=== PATIENT | male | born 1970 | race Caucasian/White ===

== ENCOUNTER 2017-06-18 07:02 | Emergency (ER) | payer BC ==
[~2017-06-18] VITALS: Ht 167.6 cm; Wt 105.2 kg
[~2017-06-18 07:02] MED LIST: Antivert25 MG PO; BUPR75 PO; Bupropion HCl150 M2 PO; CLON.2 PO; CLON.3 PO; CYCL10 PO; HYDR1TAB94 PO; L-METHYLFOLATE15 MG; LITH300C PO; Lithium Carbon450 MG PO; Mucinex600 MG PO; Naprosyn500 MG PO; OMEP20ER PO; Omeprazole20 M1; PENVK500 PO; Prednisone20 MG PO; RABE20 PO; RANI150; RANI150 PO; RISP3 PO; TRAZ150T57; Trazodone HCl300 MG; Valium5 MG PO
[2017-06-18] MEDS ORDERED: PRAZ2 PO (07:24)
[2017-06-18 08:12] LABS: BASOPHILS ABSOLUTE AUTO 0.04 K/mm3 (0.00-0.23); BASOPHILS PERCENT AUTO 0 % (0-2); EOSINOPHILS ABSOLUTE AUTO 0.02 K/mm3 (0.00-0.68); EOSINOPHILS PERCENT AUTO 0 % (0-6); Hematocrit 40.7 % (37.0-53.0); Hemoglobin 13.8 g/dL (13.5-17.5); IMMATURE GRAN PERCENT AUTO 1 % (0-1); LYMPHOCYTES PERCENT AUTO 3 % (21-46); MONOCYTES ABSOLUTE AUTO 1.05 K/mm3 (0.16-1.47); MONOCYTES PERCENT AUTO 6 % (4-13); Mean Corpuscular HGB 30.7 pg (26.0-34.0); Mean Corpuscular HGB Conc 33.9 g/dL (31.5-36.5); Mean Corpuscular Volume 91 fL (80-100); Mean Platelet Volume 9.5 fL (9.1-12.4); NEUTROPHILS ABSOLUTE AUTO 16.51 K/mm3 (1.96-9.15); NEUTROPHILS PERCENT AUTO 90 % (41-73); Platelet Count 278 K/mm3 (150-400); RDW Coefficient Variation 13.2 % (11.7-14.2); RDW Standard Deviation 44.2 fL (35.1-46.3); Red Blood Cell Count 4.49 M/mm3 (4.30-5.90); White Blood Cell Count 18.32 K/mm3 (4.00-11.30)
[2017-06-18 08:17] LABS: Influenza A Negative (NEGATIVE); Influenza B Negative (NEGATIVE)
[2017-06-18 08:25] LABS: International Normalized Ratio 0.96
[2017-06-18 08:28] LABS: Anion Gap 8 mmol/L (6-16); Blood Urea Nitrogen 15 mg/dL (8-24); Bun/Creatinine Ratio 20.7 (12.0-20.0); CO2, Blood 23 mmol/L (21-32); Calcium, Blood 8.3 mg/dL (8.5-10.1); Chloride, Blood 111 mmol/L (98-108); Creatinine, Blood 0.72 mg/dL (0.60-1.20); Glomerular Filtration Rate >60 (60-); Glucose, Blood 136 mg/dL (70-99); Potassium, Blood 3.9 mmol/L (3.5-5.5); Sodium, Blood 142 mmol/L (136-145); Troponin I <0.015 ng/mL (0.000-0.040)
[2017-11-13] MEDS ORDERED: L-METHYLFOLATE15 MG PO (12:01)
[2017-11-13] MEDS ORDERED: Multivitamin1 EAC1 PO (12:02)
== END 2017-06-18 10:15 | disposition home or self-care (01) ==
LOC: ER 07:02
PROVIDERS: Emergency Medicine
DX: R07.89 Other chest pain (principal); F41.9 Anxiety disorder, unspecified; Z79.899 Other long term (current) drug therapy; Z87.891 Personal history of nicotine dependence
CPT/HCPCS: 36415; 51798; 71046; 80048; 84484; 85025; 85610; 87804; 93005; 93010; 94640; 99284

== ENCOUNTER → 2017-06-20 | Outpatient (CLI) | payer BC ==
[~2017-06-20] MED LIST changes: +L-METHYLFOLATE15 MG PO; +Multivitamin1 EAC1 PO; +PRAZ2 PO
== END ==
LOC: LAB SHORT 15:00
DX: N39.0 Urinary tract infection, site not specified (principal)
CPT/HCPCS: 87077; 87086; 87186

== ENCOUNTER 2017-09-04 14:14 | Day surgery (SDC) | payer BC ==
[~2017-09-04] VITALS: Ht 167.6 cm; Wt 103.9 kg
[~2017-09-04 14:14] MED LIST changes: -L-METHYLFOLATE15 MG PO; +Lithium Carbon450 MG; -Lithium Carbon450 MG PO; -Multivitamin1 EAC1 PO
== END 2017-09-04 15:45 | disposition home or self-care (01) ==
LOC: ORSCSDS 14:14
PROVIDERS: Internal Medicine Gastroenterology
PROC: 0D757ZZ Dilation of Esophagus, Via Natural or Artificial Opening (ICD-10-PCS; principal; 2017-09-04 15:30)
PROC: 0DB58ZX Excision of Esophagus, Via Natural or Artificial Opening Endoscopic, Diagnostic (ICD-10-PCS; principal; 2017-09-04 15:30)
PROC: 0DB68ZX Excision of Stomach, Via Natural or Artificial Opening Endoscopic, Diagnostic (ICD-10-PCS; principal; 2017-09-04 15:30)
DX: K21.9 Gastro-esophageal reflux disease without esophagitis (principal); R13.10 Dysphagia, unspecified; K25.9 Gastric ulcer, unspecified as acute or chronic, without hemorrhage or perforation; K29.70 Gastritis, unspecified, without bleeding; K20.9 Esophagitis, unspecified; I10 Essential (primary) hypertension; Z87.891 Personal history of nicotine dependence; Z79.899 Other long term (current) drug therapy; E66.01 Morbid (severe) obesity due to excess calories
CPT/HCPCS: 88305; 88342; J7120

== ENCOUNTER 2017-11-10 11:25 | Emergency (ER) | payer OTHER, BC ==
[~2017-11-10] VITALS: Ht 167.6 cm; Wt 111.6 kg
[~2017-11-10 11:25] MED LIST changes: -Lithium Carbon450 MG; +Lithium Carbon450 MG PO
[2017-11-13] MEDS ORDERED: L-METHYLFOLATE15 MG PO (12:01)
[2017-11-13] MEDS ORDERED: Multivitamin1 EAC1 PO (12:02)
== END 2017-11-10 12:40 | disposition home or self-care (01) ==
LOC: ER 11:25
DX: S49.91XA Unspecified injury of right shoulder and upper arm, initial encounter (principal); M54.5 Low back pain; K21.9 Gastro-esophageal reflux disease without esophagitis; I10 Essential (primary) hypertension; Z88.8 Allergy status to other drugs, medicaments and biological substances; Z79.899 Other long term (current) drug therapy; Z87.891 Personal history of nicotine dependence; X50.0XXA Overexertion from strenuous movement or load, initial encounter; Y99.0 Civilian activity done for income or pay
CPT/HCPCS: 99283

== ENCOUNTER 2018-10-14 06:01 | Emergency (ER) | payer BC, OTHER ==
[~2018-10-14] VITALS: Ht 172.7 cm; Wt 88.5 kg
[~2018-10-14 06:01] MED LIST changes: +L-METHYLFOLATE15 MG PO; +Multivitamin1 EAC1 PO
[2018-10-14] MEDS ORDERED: ALBU90OI INH (07:23)
[2018-10-14] MEDS ORDERED: Prednisone20 MG PO (07:37)
== END 2018-10-14 07:57 | disposition home or self-care (01) ==
LOC: ER 06:01
DX: J98.01 Acute bronchospasm (principal); I10 Essential (primary) hypertension; K21.9 Gastro-esophageal reflux disease without esophagitis; G47.30 Sleep apnea, unspecified; Z88.8 Allergy status to other drugs, medicaments and biological substances; Z79.899 Other long term (current) drug therapy; Z87.891 Personal history of nicotine dependence
CPT/HCPCS: 36415; 71046; 93005; 93010; 94640; 99285-25

== ENCOUNTER 2019-01-07 08:02 | Emergency (ER) | payer BC ==
[~2019-01-07] VITALS: Ht 170.2 cm; Wt 86.2 kg
[~2019-01-07 08:02] MED LIST changes: +ALBU90OI INH
[2019-01-07] MEDS ORDERED: ALPRAZOLAM PO (08:29)
[2019-01-07] MEDS ORDERED: SYNTHROID100 MC2 PO (08:29)
[2019-01-07] MEDS ORDERED: CETI5 PO (08:30)
[2019-01-07] MEDS ORDERED: OMEPRAZOLE CAP 20M PO (08:30)
[2019-01-07 08:43] LABS: BASOPHILS ABSOLUTE AUTO 0.04 K/mm3 (0.00-0.23); BASOPHILS PERCENT AUTO 1 % (0-2); EOSINOPHILS ABSOLUTE AUTO 0.23 K/mm3 (0.00-0.68); EOSINOPHILS PERCENT AUTO 3 % (0-6); Hematocrit 41.5 % (37.0-53.0); Hemoglobin 13.9 g/dL (13.5-17.5); IMMATURE GRAN ABSOLUTE AUTO 0.02 K/mm3 (0.00-0.10); IMMATURE GRAN PERCENT AUTO 0 % (0-1); LYMPHOCYTES ABSOLUTE AUTO 1.16 K/mm3 (0.84-5.20); LYMPHOCYTES PERCENT AUTO 14 % (21-46); MONOCYTES PERCENT AUTO 6 % (4-13); Mean Corpuscular HGB 31.2 pg (26.0-34.0); Mean Corpuscular HGB Conc 33.5 g/dL (31.5-36.5); Mean Corpuscular Volume 93 fL (80-100); Mean Platelet Volume 9.6 fL (9.1-12.4); NEUTROPHILS ABSOLUTE AUTO 6.33 K/mm3 (1.96-9.15); NEUTROPHILS PERCENT AUTO 77 % (41-73); Platelet Count 284 K/mm3 (150-400); RDW Coefficient Variation 13.2 % (11.7-14.2); RDW Standard Deviation 45.2 fL (35.1-46.3); Red Blood Cell Count 4.45 M/mm3 (4.30-5.90); White Blood Cell Count 8.28 K/mm3 (4.00-11.30)
[2019-01-07 09:05] LABS: Alanine Aminotransfer (ALT/SGP 31 U/L (12-78); Albumin, Blood 3.4 g/dL (3.4-5.0); Alk Phos 64 U/L (50-136); Anion Gap 7 mmol/L (6-16); Aspartate Aminotrans (AST/SGOT 16 U/L (12-37); Bilirubin, Total 0.2 mg/dL (0.1-1.0); Blood Urea Nitrogen 19 mg/dL (8-24); Bun/Creatinine Ratio 31.1 (12.0-20.0); CO2, Blood 24 mmol/L (21-32); Calcium, Blood 8.2 mg/dL (8.5-10.1); Chloride, Blood 111 mmol/L (98-108); Creatinine, Blood 0.61 mg/dL (0.60-1.20); Globulin, Blood 3.3 g/dL (2.2-4.0); Glomerular Filtration Rate >60 (60-); Glucose, Blood 106 mg/dL (70-99); Potassium, Blood 3.9 mmol/L (3.5-5.5); Sodium, Blood 142 mmol/L (136-145); Total Protein, Blood 6.7 g/dL (6.4-8.2); Troponin I <0.015 ng/mL (0.000-0.040)
== END 2019-01-07 13:34 | disposition home or self-care (01) ==
LOC: ER 08:02
PROVIDERS: Physician Assistant
DX: R07.9 Chest pain, unspecified (principal); Z88.8 Allergy status to other drugs, medicaments and biological substances; Z79.899 Other long term (current) drug therapy; F41.9 Anxiety disorder, unspecified; Z87.891 Personal history of nicotine dependence
CPT/HCPCS: 36415; 71046; 80053; 83690; 83880; 84484; 85025; 93005; 93010; 96374; 99285-25; J3010

== ENCOUNTER 2019-01-31 09:09 | Emergency (ER) | payer OTHER, BC ==
[~2019-01-31] VITALS: Ht 170.2 cm; Wt 86.2 kg
[~2019-01-31 09:09] MED LIST changes: +ALPRAZOLAM PO; +CETI5 PO; +OMEPRAZOLE CAP 20M PO; +SYNTHROID100 MC2 PO
[2019-01-31] MEDS ORDERED: OMEPRAZOLE20 M1 PO (10:49)
[2019-01-31] MEDS ORDERED: TEMA15 PO (10:50)
[2019-01-31 11:39] LABS: Source, Urine Clean Catch
[2019-01-31 11:57] LABS: Bilirubin, Urine Neg (Neg); Blood, Urine 1+ (Neg); Glucose Qualitative, Urine Neg (Neg); Ketones, Urine Neg (Neg); Leukocyte Esterase, Urine Neg (Neg); Nitrite, Urine Neg (Neg); Protein, Urine Neg (Neg); Urobilinogen, Urine NORM (Normal)
[2019-01-31 12:21] LABS: Appearance, Urine Clear (Clear); Color, Urine Yellow (P-Yellow)
[2019-01-31 12:22] LABS: Bacteria Not Seen /hpf; Red Blood Cells, Urine 0-2 /hpf (0-2); Squamous Epithelial Cells Not Seen /hpf (Few); White Blood Cells, Urine 0-2 /hpf (0-5)
[2019-01-31] MEDS ORDERED: Robaxin-750750 MG PO (12:46)
[2019-01-31] MEDS ORDERED: HYDR1TAB94 PO (12:46)
[2019-01-31] MEDS ORDERED: KETO10 PO (12:46)
== END 2019-01-31 12:59 | disposition home or self-care (01) ==
LOC: ER 09:09
PROVIDERS: Physician Assistant
DX: M54.5 Low back pain (principal); M53.3 Sacrococcygeal disorders, not elsewhere classified; I10 Essential (primary) hypertension; K21.9 Gastro-esophageal reflux disease without esophagitis; F41.9 Anxiety disorder, unspecified; G47.30 Sleep apnea, unspecified; Z87.891 Personal history of nicotine dependence; Z88.5 Allergy status to narcotic agent; Z79.899 Other long term (current) drug therapy
CPT/HCPCS: 74176; 81001; 96372; 99284-25; A9270-GY; J0690; J1885

== ENCOUNTER 2019-02-02 00:03 | Emergency (ER) | payer OTHER, BC ==
[~2019-02-02] VITALS: Ht 170.2 cm; Wt 86.2 kg
[~2019-02-02 00:03] MED LIST changes: +KETO10 PO; +OMEPRAZOLE20 M1 PO; +Robaxin-750750 MG PO; +TEMA15 PO
[2019-02-02] MEDS ORDERED: ALPR.25 (00:32)
[2019-02-02] MEDS ORDERED: METPRE4DP PO (03:06)
== END 2019-02-02 04:01 | disposition home or self-care (01) ==
LOC: ER 00:03
DX: M54.17 Radiculopathy, lumbosacral region (principal); F41.9 Anxiety disorder, unspecified; Z87.891 Personal history of nicotine dependence; Z88.5 Allergy status to narcotic agent; Z79.899 Other long term (current) drug therapy
CPT/HCPCS: 36415; 96374; 96375; 96376; 99283-25; J1100; J1170; J1885; J2405

== ENCOUNTER 2021-02-02 06:05 | Emergency (ER) | payer BC ==
[~2021-02-02] VITALS: Ht 167.6 cm; Wt 109.8 kg
[~2021-02-02 06:05] MED LIST changes: +ALPR.25; +METPRE4DP PO
[2021-02-02 06:59] LABS: BASOPHILS ABSOLUTE AUTO 0.06 K/mm3 (0.00-0.23); BASOPHILS PERCENT AUTO 1 % (0-2); EOSINOPHILS ABSOLUTE AUTO 0.42 K/mm3 (0.00-0.68); EOSINOPHILS PERCENT AUTO 5 % (0-6); Hematocrit 45.4 % (37.0-53.0); IMMATURE GRAN ABSOLUTE AUTO 0.03 K/mm3 (0.00-0.10); IMMATURE GRAN PERCENT AUTO 0 % (0-1); LYMPHOCYTES PERCENT AUTO 19 % (21-46); MONOCYTES ABSOLUTE AUTO 0.68 K/mm3 (0.16-1.47); MONOCYTES PERCENT AUTO 8 % (4-13); Mean Corpuscular HGB 29.9 pg (26.0-34.0); Mean Corpuscular Volume 91 fL (80-100); Mean Platelet Volume 9.4 fL (9.1-12.4); NEUTROPHILS ABSOLUTE AUTO 5.62 K/mm3 (1.96-9.15); NEUTROPHILS PERCENT AUTO 67 % (41-73); NRBC ABSOLUTE 0.02 K/mm3 (0.00-0.02); NRBC Auto 0.2 /100 WBC (0.0-0.2); Platelet Count 326 K/mm3 (150-400); RDW Coefficient Variation 13.3 % (11.7-14.2); RDW Standard Deviation 44.9 fL (35.1-46.3); Red Blood Cell Count 5.01 M/mm3 (4.30-5.90); White Blood Cell Count 8.41 K/mm3 (4.00-11.30)
[2021-02-02 07:19] LABS: Alanine Aminotransfer (ALT/SGP 41 U/L (12-78); Albumin, Blood 3.3 g/dL (3.4-5.0); Albumin/Globulin Ratio 0.9 (0.8-1.8); Alk Phos 56 U/L (50-136); Anion Gap 6 mmol/L (6-16); Aspartate Aminotrans (AST/SGOT 23 U/L (12-37); Bilirubin, Total 0.2 mg/dL (0.1-1.0); Blood Urea Nitrogen 21 mg/dL (8-24); Bun/Creatinine Ratio 29.7 (12.0-20.0); CO2, Blood 24 mmol/L (21-32); Calcium, Blood 8.8 mg/dL (8.5-10.1); Chloride, Blood 110 mmol/L (98-108); Creatinine, Blood 0.71 mg/dL (0.60-1.20); Globulin, Blood 3.8 g/dL (2.2-4.0); Glomerular Filtration Rate >60 (60-); Glucose, Blood 108 mg/dL (70-99); Potassium, Blood 3.9 mmol/L (3.5-5.5); Sodium, Blood 140 mmol/L (136-145); Total Protein, Blood 7.1 g/dL (6.4-8.2); Troponin I <0.015 ng/mL (0.000-0.040)
[2021-02-02] MEDS ORDERED: MECL25 PO (07:37)
== END 2021-02-02 07:48 | disposition home or self-care (01) ==
LOC: ER 06:05
PROVIDERS: Emergency Medicine
DX: R42 Dizziness and giddiness (principal); F41.9 Anxiety disorder, unspecified; I10 Essential (primary) hypertension; K21.9 Gastro-esophageal reflux disease without esophagitis; Z88.8 Allergy status to other drugs, medicaments and biological substances; Z79.899 Other long term (current) drug therapy
CPT/HCPCS: 36415; 71046; 80053; 84484; 85025; 93005; 93010; 96374; 99284-25; A9270; J2060

== ENCOUNTER 2022-11-14 21:12 | Emergency (ER) | payer BC, OTHER ==
[~2022-11-14] VITALS: Ht 167.6 cm; Wt 107.0 kg
[~2022-11-14 21:12] MED LIST changes: +BUPR100ER PO; +DIAZEPAM5 M2 PO; +HYDPAM50 PO; +Lamictal150 MG PO; +MECL25 PO; +Prazosin HCl2 MG PO; +RISPERIDONE PO; +[UNRECOGNIZED DRUG - CODE] PO
[2022-11-14] MEDS ORDERED: LATUDA20 M1 (21:27)
[2022-11-14 23:20] LABS: BASOPHILS ABSOLUTE AUTO 0.05 K/mm3 (0.00-0.23); BASOPHILS PERCENT AUTO 1 % (0-2); EOSINOPHILS ABSOLUTE AUTO 0.26 K/mm3 (0.00-0.68); EOSINOPHILS PERCENT AUTO 3 % (0-6); Hematocrit 43.1 % (37.0-53.0); Hemoglobin 14.7 g/dL (13.5-17.5); IMMATURE GRAN ABSOLUTE AUTO 0.03 K/mm3 (0.00-0.10); IMMATURE GRAN PERCENT AUTO 0 % (0-1); LYMPHOCYTES ABSOLUTE AUTO 1.81 K/mm3 (0.84-5.20); LYMPHOCYTES PERCENT AUTO 19 % (21-46); MONOCYTES ABSOLUTE AUTO 0.86 K/mm3 (0.16-1.47); MONOCYTES PERCENT AUTO 9 % (4-13); Mean Corpuscular HGB 30.8 pg (26.0-34.0); Mean Corpuscular HGB Conc 34.1 g/dL (31.5-36.5); Mean Corpuscular Volume 90 fL (80-100); Mean Platelet Volume 9.6 fL (9.1-12.4); NEUTROPHILS ABSOLUTE AUTO 6.71 K/mm3 (1.96-9.15); NEUTROPHILS PERCENT AUTO 69 % (41-73); Platelet Count 316 K/mm3 (150-400); RDW Coefficient Variation 12.9 % (11.7-14.2); RDW Standard Deviation 42.6 fL (35.1-46.3); Red Blood Cell Count 4.77 M/mm3 (4.30-5.90); White Blood Cell Count 9.72 K/mm3 (4.00-11.30)
[2022-11-14 23:39] LABS: Albumin, Blood 3.6 g/dL (3.4-5.0); Bilirubin, Total 0.2 mg/dL (0.1-1.0); Bun/Creatinine Ratio 15.7 (12.0-20.0); Calcium, Blood 8.4 mg/dL (8.5-10.1); Creatinine, Blood 0.89 mg/dL (0.60-1.20); Globulin, Blood 3.6 g/dL (2.2-4.0); Potassium, Blood 3.5 mmol/L (3.5-5.5); Total Protein, Blood 7.2 g/dL (6.4-8.2)
[2022-11-15 01:00] VITALS: BP 134/98
[2022-11-15 01:25] LABS: Lithium 0.45 mmol/L (0.60-1.20)
== END 2022-11-15 02:57 | disposition home or self-care (01) ==
LOC: ER 21:12
PROVIDERS: Student in an Organized Health Care Education/Training Program
DX: R42 Dizziness and giddiness (principal); R55 Syncope and collapse; R51.9 Headache, unspecified; F41.9 Anxiety disorder, unspecified; G47.30 Sleep apnea, unspecified; I10 Essential (primary) hypertension; K21.9 Gastro-esophageal reflux disease without esophagitis; Z88.8 Allergy status to other drugs, medicaments and biological substances; Z79.899 Other long term (current) drug therapy
CPT/HCPCS: 70450; 80053; 80178; 84484; 85025; 93005; 93010; 99285-25